=== PATIENT | female | born 1965 | race Caucasian/White ===

== ENCOUNTER 2017-09-15 19:05 | Emergency (ER) | payer BC, OTHER ==
[~2017-09-15] VITALS: Ht 162.6 cm; Wt 102.4 kg
[~2017-09-15 19:05] MED LIST: MELO15 PO; NEXI40CA PO; VORT10TA PO
[2017-09-15 19:18] VITALS: BP 144/92; PULSE 79; RESP 18; TEMP 98.3; O2SAT 96
[2017-09-15] MEDS ORDERED: ASPIRIN 81 MG CHEW TAB PO ONE (19:30)
[2017-09-15] MEDS ORDERED: SODIUM CHLORIDE 0.9% FLUSH 10 ML FLUSH IVF PRN (19:30)
--- NOTE | 2017-09-15 19:37 | PD ---
HPI Chief Complaint: Chest Pain Time Seen by Provider: 19:30 Travel History International Travel<30 days: No Contact w/Intl Traveler<30days: No Traveled to known affect area: No History of Present Illness HPI 52-year-old female presents to the emergency department by private transportation for complaint of 20 minutes of left-sided chest tightness associated with belching and clamminess. Patient states symptoms have resolved at this time. Patient states she had excessive belching. No nausea no vomiting no hematemesis no coffee-ground emesis nonbilious emesis. Patient is status post cholecystectomy and lap band. Patient denies any referred neck jaw back shoulder arm mid scapular abdominal pain. Patient states she took no medications for her symptoms. Reportedly symptoms came on while she was shopping and sat down for a while and then reportedly resolved with walking. Patient denies any prior history of cardiac disease or chest pain also denies any history of hypertension dyslipidemia diabetes tobaccoism or family history of premature onset heart disease. Patient states she has had EKGs in the past and to her knowledge there is no abnormality. Patient never had a cardiac evaluation. Patient is treated for anxiety. No report of recent long distance travel protracted bedrest surgical procedure or long distance travel. No report of lower extremity pain or swelling. Patient states that symptoms began after checking on her parents both of whom have dementia and she is her caregiver and this is very stressful. Patient denies any dietary indiscretion well water ingestion or foreign travel. Patient states she was well all day until symptoms began around 5:30 PM. Current discomfort/pain is 0/10 in intensity. Patient denies taking any medications prior to arrival to the emergency department. PFSH Past Medical History Narrative Medical Anxiety depression, mitral valve prolapse, cholecystectomy, lap band; occasional alcohol use; nursing notes reviewed Anxiety: Yes Depression: Yes Cancer: No Cardiovascular Problems: Yes (MVP) Diabetes: No Diminished Hearing: No Genitourinary: No Implanted Vascular Access Dvce: Yes Musculoskeletal: No Neurologic: No Psychiatric: Yes Reproductive: No Respiratory: No Immunizations Current: No LMP: 09-09-17 Past Surgical History Abdominal Surgery: Yes (LAP BAND) Cholecystectomy: Yes Other Surgery: Yes Social History Alcohol Use: Yes (1/WEEK) Tobacco Use: No Substance Use: No Allergies-Medications (Allergen,Severity, Reaction): Coded Allergies: Sulfa (Sulfonamide Antibiotics) (Unverified Allergy, Intermediate, RASH, ) Reported Meds & Prescriptions Reported Meds & Active Scripts Active Reported Vitamin B Complex (B-Complex Vitamins) 1 Tab 1 Tab PO DAILY Vitamin D3 (Cholecalciferol) 2,000 Unit Cap 2,000 Units PO DAILY Lorazepam 0.5 Mg Tab 0.5 Mg PO HS PRN Meloxicam 15 Mg Tab 15 Mg PO DAILY PRN Nexium (Esomeprazole DR) 40 Mg Capdr 40 Mg PO DAILY Trintellix (Vortioxetine) 10 Mg Tab 10 Mg PO DAILY Review of Systems Except as stated in HPI: all other systems reviewed are Neg General / Constitutional: No: Fever, Chills HENT: No: Congestion Cardiovascular: Positive: Chest Pain or Discomfort, Diaphoresis ("clammy"), No : Palpitations, Syncope Respiratory: No: Cough, Shortness of Breath, Pleuritic Pain Gastrointestinal: No: Nausea, Vomiting, Abdominal Pain Genitourinary: No: Flank Pain Musculoskeletal: No: Myalgias, Arthralgias Skin: No Rash Neurologic: No: Weakness Psychiatric: Positive: Anxiety Hematologic/Lymphatic: No: Easy Bruising Physical Exam Narrative GENERAL: Well-developed well-nourished female no acute distress no respiratory distress; GCS 15 SKIN: Warm and dry. HEAD: Normocephalic. EYES: No scleral icterus. No injection or drainage. NECK: Supple, trachea midline. No JVD or lymphadenopathy. CARDIOVASCULAR: Regular rate and rhythm without murmurs, gallops, or rubs. Radial and dorsalis pedis pulses 2+ to palpation bilaterally. RESPIRATORY: Breath sounds equal bilaterally. No accessory muscle use. GASTROINTESTINAL: Abdomen soft, non-tender, nondistended. MUSCULOSKELETAL: No cyanosis, or edema. BACK: Nontender without obvious deformity. No CVA tenderness. Data Data Last Documented VS Vital Signs Date Time Temp Pulse Resp B/P (MAP) Pulse Ox O2 Delivery O2 Flow Rate FiO2 09/15/17 22:05 09/15/17 21:35 66 18 98 Room Air 09/15/17 19:18 98.3 Orders Orders Electrocardiogram (09/15/17 19:30) Ckmb (Isoenzyme) Profile (09/15/17 19:30) Complete Blood Count With Diff (09/15/17 19:30) Comprehensive Metabolic Panel (09/15/17 19:30) Magnesium (Mg) (09/15/17 19:30) Prothrombin Time / Inr (Pt) (09/15/17 19:30) Act Partial Throm Time (Ptt) (09/15/17 19:30) Troponin I (09/15/17 19:30) Lipase (09/15/17 19:30) Ecg Monitoring (09/15/17 19:30) Bilateral Bp Monitoring (09/15/17 19:30) Iv Access Insert/Monitor (09/15/17:30) Oximetry (09/15/17 19:30) Oxygen Administration (09/15/17 19:30) Aspirin Chew (Aspirin Chew) (09/15/17 19:30) Sodium Chloride 0.9% Flush (Ns Flush) (09/15/17 19:30) Chest, Pa & Lat (09/15/17 19:30) Thyroid Stimulating Hormone (09/15/17 19:30) Sucralfate Liq (Carafate Liq) (09/15/17 21:00) Ed Discharge Order (09/15/17 21:56) Labs Laboratory Tests Test 09/15/17 19:40 09/15/17 20:15 White Blood Count 5.8 TH/MM3 Red Blood Count 4.71 MIL/MM3 Hemoglobin 12.4 GM/DL Hematocrit 37.2 % Mean Corpuscular Volume 79.0 FL Mean Corpuscular Hemoglobin 26.4 PG Mean Corpuscular Hemoglobin Concent 33.4 % Red Cell Distribution Width 15.7 % Platelet Count 426 TH/MM3 Mean Platelet Volume 7.8 FL Neutrophils (%) (Auto) 54.0 % Lymphocytes (%) (Auto) 35.5 % Monocytes (%) (Auto) 6.1 % Eosinophils (%) (Auto) 2.3 % Basophils (%) (Auto) 2.1 % Neutrophils # (Auto) 3.1 TH/MM3 Lymphocytes # (Auto) 2.1 TH/MM3 Monocytes # (Auto) 0.4 TH/MM3 Eosinophils # (Auto) 0.1 TH/MM3 Basophils # (Auto) 0.1 TH/MM3 CBC Comment DIFF FINAL Differential Comment Prothrombin Time 10.0 SEC Prothromb Time International Ratio 1.0 RATIO Activated Partial Thromboplast Time 26.7 SEC Blood Urea Nitrogen 7 MG/DL Creatinine 0.90 MG/DL Random Glucose 90 MG/DL Total Protein 7.1 GM/DL Albumin 3.3 GM/DL Calcium Level 8.4 MG/DL Magnesium Level 1.9 MG/DL Alkaline Phosphatase 118 U/L Aspartate Amino Transf (AST/SGOT) 31 U/L Alanine Aminotransferase (ALT/SGPT) 41 U/L Total Bilirubin 0.2 MG/DL Sodium Level 136 MEQ/L Potassium Level 3.7 MEQ/L Chloride Level 103 MEQ/L Carbon Dioxide Level 23.9 MEQ/L Anion Gap 9 MEQ/L Estimat Glomerular Filtration Rate 66 ML/MIN Total Creatine Kinase 70 U/L Troponin I LESS THAN 0.02 NG/ML Lipase 176 U/L Thyroid Stimulating Hormone 3rd Gen 2.560 uIU/ML MDM Medical Decision Making Medical Screen Exam Complete: Yes Emergency Medical Condition: Yes Medical Record Reviewed: Yes Interpretation(s) EKG normal sinus rhythm rate [address] elevation or injury pattern change noted poor R-wave progression noted V3 V4 Last Impressions Chest X-Ray 09/15/17 193 Signed Impressions: Service Date/Time: Friday, September 15, 2017 19:35 - CONCLUSION: No acute cardiopulmonary disease. Satnam Taylor MD CBC & BMP Diagram 09/15/17 19:40 09/15/17 20:15 Total Protein 7.1, Albumin 3.3 L, Calcium Level 8.4 L, Magnesium Level 1.9, Alkaline Phosphatase 118 H, Aspartate Amino Transf (AST/SGOT) 31, Alanine Aminotransferase (ALT/SGPT) 41, Total Bilirubin 0.2 Vital Signs Date Time Temp Pulse Resp B/P (MAP) Pulse Ox O2 Delivery O2 Flow Rate FiO2 09/15/17 20:00 68 142/88 (106) 97 Room Air 160/95 (116) 09/15/17 19:18 98.3 79 18 144/92 (109) 96 CK: 70, not elevated; troponin I: Less than 0.02, not elevated TSH 2.560, not elevated Differential Diagnosis Chest pain, atypical chest pain, ACS, myocardial infarction, aortic dissection, esophageal spasm, reflux esophagitis costochondritis, pleurisy, PE, pneumonia, pancreatitis, peptic ulcer disease Narrative Course Patient placed on monitoring engineer with continuous pulse oximetry; EKG had been performed in triage showed no acute ST elevation or injury pattern change. Patient denies any discomfort at this time and rates her pain 0/10 intensity. Patient given aspirin based on complaint. Risk factor profile at this time patient is a female age 52 however still menstruating female, no history of hypertension, dyslipidemia, tobaccoism, diabetes, or premature onset heart disease in her family. Patient resting comfortably received aspirin 162 mg by mouth chewed continues to deny any discomfort. At 21:00 troponin I pending patient continues to deny any chest discomfort does report some mild belching and also now states she has some epigastric burning like gastritis; patient administered Carafate 1 g suspension. Troponin I is less than 0.02, not elevated Discussed with patient lab results and EKG and radiographic findings; family members at the bedside, patient laughing and in no distress or apparent discomfort. Patient offered observation admission to chest pain center per protocol this was discussed in detail with family at bedside; patient reports close access to her PCP and reports plan for outpatient follow up x 1 day; encouraged to return immediately for any concerns or change in condition. Diagnosis Primary Impression: Chest pain Referrals: Primary Care Physician 1 day Patient Instructions: General Instructions Departure Forms: Tests/Procedures, Work Release Special Instructions: no work x 1 day Additional Instructions: Increase fluid hydration Follow-up with primary care provider Return to the emergency department for any concerns or change in condition Take low-dose aspirin 81 mg daily No work 1 day Disposition: 01 DISCHARGE HOME Condition: Stable Zuly Medina MD Sep 15, 2017 19:37
[2017-09-15] MEDS ORDERED: MELO15TA20 PO (19:55)
[2017-09-15] MEDS ORDERED: VITA2000 PO (19:55)
[2017-09-15] MEDS ORDERED: VORT1TAB2 PO (19:55)
[2017-09-15] MEDS ORDERED: LORA0.5T PO (19:55)
[2017-09-15] MEDS ORDERED: VITATAB11 PO (19:55)
[2017-09-15] MEDS ORDERED: NEXI40CA PO (19:55)
[2017-09-15 19:56] LABS: AUTOMATED NEUTROPHIL # 3.1 TH/MM3 (1.8-7.7); BASOPHIL # 0.1 TH/MM3 (0-0.2); BASOPHIL % 2.1 % (0.0-2.0); EOSINOPHIL # 0.1 TH/MM3 (0-0.4); EOSINOPHIL % 2.3 % (0.0-4.0); HEMATOCRIT 37.2 % (35.0-46.0); HEMOGLOBIN 12.4 GM/DL (11.6-15.3); LYMPH % 35.5 % (9.0-44.0); LYMPHOCYTE # 2.1 TH/MM3 (1.0-4.8); MEAN CORPUSCULAR HEMOGLOBIN 26.4 PG (27.0-34.0); MEAN CORPUSCULAR HGB CONC 33.4 % (32.0-36.0); MEAN PLATELET VOLUME 7.8 FL (7.0-11.0); MONO % 6.1 % (0.0-8.0); MONOCYTE # 0.4 TH/MM3 (0-0.9); PLATELET COUNT 426 TH/MM3 (150-450); RED BLOOD COUNT 4.71 MIL/MM3 (4.00-5.30); RED CELL DISTRIBUTION WIDTH 15.7 % (11.6-17.2); WHITE BLOOD COUNT 5.8 TH/MM3 (4.0-11.0)
[2017-09-15 20:00] VITALS: BP_SYST 142; BP_SYST 160; BP_DIAS 88; BP_DIAS 95; PULSE 68; O2SAT 97
--- NOTE | 2017-09-15 20:11 | RADRPT ---
EXAM DATE/TIME: 09/15/2017 19:35 [facility] COMPARISON: No previous studies available for comparison. INDICATIONS : Chest pain. MEDICAL HISTORY : None. SURGICAL HISTORY : None. ENCOUNTER: Initial ACUITY: 1 day PAIN SCORE: 4/10 LOCATION: Left chest FINDINGS: PA and lateral views of the chest demonstrate the lungs to be symmetrically aerated without evidence of mass, infiltrate or effusion. The cardiomediastinal contours are unremarkable. Osseous structure s are intact. CONCLUSION: No acute cardiopulmonary disease. Satnam Taylor MD on September 15, 2017 at 20:09 Board Certified Radiologist. This report was verified electronically.
[2017-09-15 20:37] LABS: CHLORIDE 103 MEQ/L (98-107); SODIUM (NA) 136 MEQ/L (136-145)
[2017-09-15 20:40] LABS: CALCIUM 8.4 MG/DL (8.5-10.1)
[2017-09-15 20:41] LABS: ALBUMIN 3.3 GM/DL (3.4-5.0); BICARBONATE 23.9 MEQ/L (21.0-32.0); BLOOD UREA NITROGEN 7 MG/DL (7-18); GLUCOSE,RANDOM 90 MG/DL (74-106); MAGNESIUM 1.9 MG/DL (1.5-2.5)
[2017-09-15 20:43] LABS: ALT (GPT) 41 U/L (10-53); AST (GOT) 31 U/L (15-37)
[2017-09-15 20:44] LABS: GLOMERULAR FILTRATION RATE 66 ML/MIN (>89)
[2017-09-15 20:45] LABS: TOTAL BILIRUBIN ADULT 0.2 MG/DL (0.2-1.0); TOTAL PROTEIN 7.1 GM/DL (6.4-8.2)
[2017-09-15 20:46] LABS: ALKALINE PHOSPHATASE 118 U/L (45-117)
[2017-09-15 20:49] LABS: TROPONIN I LESS THAN 0.02 NG/ML (0.02-0.05)
[2017-09-15] MEDS ORDERED: SUCRALFATE 1 GM/10 ML CUP PO ONE (21:00)
[2017-09-15 21:12] VITALS: BP 160/93; PULSE 63; RESP 16; O2SAT 100
[2017-09-15 21:35] VITALS: BP 156/83; PULSE 66; RESP 18; O2SAT 98
[2017-09-15 21:50] VITALS: BP_SYST 155; BP_SYST 168; BP_DIAS 87; BP_DIAS 90
--- NOTE | 2017-09-17 06:51 | EKG ---
Date Performed: 09/15/2017 Time Performed: 19:10:32 PTAGE: 52 years EKG: Sinus rhythm POSSIBLE ANTERIOR MYOCARDIAL INFARCTION BORDERLINE ECG Compared to PREVIOUS TRACING , loss of R-wave in V3, most likely due to lead placement but cannot exc lude infarction. PREVIOUS TRACING DOCTOR: Luis Fernando Bryson Interpretating Date/Time 09/17/2017 06:50:27
== END 2017-09-15 22:06 | disposition home or self-care (01) ==
LOC: PHED 19:05
DX: R07.89 Other chest pain (principal); F41.9 Anxiety disorder, unspecified; Z79.899 Other long term (current) drug therapy; Z88.2 Allergy status to sulfonamides
CPT/HCPCS: 71046; 80053; 82550; 83690; 83735; 84443; 84484; 85025; 85610; 85730; 93005; 99285